=== PATIENT | female | born 2000 | race Hispanic/Latino ===

== ENCOUNTER 2023-07-01 18:58 | Emergency (ER) | payer MEDICAID, SELFPAY ==
[2023-07-01 19:40] LABS: Bacteria/HPF None Seen HPF (None Seen); Bilirubin Negative (Negative); Blood, Urine Trace (Negative); CAUTI Indications for Culture Dysuria,urgency,freq; Clarity Turbid (Clear); Glucose, Urine (Dipstick) Normal (Negative); Ketone, Urine Negative (Negative); Leukocyte Negative Leu/uL (Negative); Nitrite Negative (Negative); Protein, Urine (Dipstick) 10 mg/dL (Neg-Trace); RBC/HPF 0-3 HPF (0-3); Specific Gravity, Urine 1.034 (1.002-1.036); Squamous Epithelial 21-50 HPF (0-3); Urobilinogen Normal mg/dL (Less than 2); WBC/HPF 0-3 HPF (0-3); pH, Urine 5.5 (5.0-9.0)
[2023-07-01 19:46] LABS: Urine Culture Reflex No No
[2023-07-01] MEDS ORDERED: Dexamethasone 10 MG/ML VIAL ONE (20:04)
[2023-07-01] MEDS ORDERED: HYDROcodone/Acetaminophen 5/325 mg Tablet ONE (20:05)
[2023-07-01 20:34] LABS: #Eosinphils 0.1 thou/uL (0.0-0.7); #Monocytes 0.5 thou/uL (0.11-0.59); #Neutrophils 4.5 thou/uL (1.40-6.50); %Basophils 0.4 % (0.0-1.0); %Eosinophils 1.1 % (0.0-10.0); %Lymphocytes 28.9 % (21.0-51.0); %Neutrophils 62.3 % (42.0-75.0); Hematocrit 40.9 % (36.0-47.0); Hemoglobin 13.9 g/dL (12.0-16.0); Mean Corpuscular Hemoglobin 31.4 pg (27.0-31.0); Mean Corpuscular Volume 92.3 fl (78.0-98.0); Mean Platelet Volume 10.3 fL (7.4-10.4); Platelet Count 218 10x3/uL (130-400); RBC Distribution Width 11.8 % (11.5-14.5); Red Blood Cell (RBC) Count 4.43 mill/uL (4.20-5.40); White Blood Cell (WBC) Count 7.3 10x3/uL (4.8-10.8)
[2023-07-01 20:58] LABS: Calc. Creatinine Clearance 0 mL/min (70-130); Calcium 9.2 mg/dL (7.8-10.44); Carbon Dioxide 21 mmol/L (22-29); Chloride 105 mmol/L (98-107); Estimated GFR 107; Glucose 96 mg/dL (70-105); Sodium 135 mmol/L (136-145)
[2023-07-01 20:59] LABS: BUN (Urea Nitrogen) 15 mg/dL (7.0-18.7)
[2023-07-01 21:00] LABS: Lipase 21 U/L (8-78)
[2023-07-01 21:01] LABS: Anion Gap 14 mmol/L (10-20)
== END 2023-07-01 21:17 | disposition home or self-care (01) ==
LOC: ERS 18:58
DX: M54.50 Low back pain, unspecified (principal)
CPT/HCPCS: 36415; 80048; 81001; 83690; 85025; 96372; 99283; J1100